=== PATIENT | male | born 2000 | race Hispanic/Latino ===

== ENCOUNTER 2019-04-10 22:30 | Emergency (ER) | payer OTHER ==
[~2019-04-10] VITALS: Ht 172.7 cm; Wt 84.1 kg
[2019-04-10] MEDS ORDERED: MELO15TA28 PO (22:36)
[2019-04-11 02:06] VITALS: BP 125/72
--- NOTE | 2019-04-11 08:03 | REP ---
Right hip two views: Mineralization and joint space are normal. There is no fracture or dislocation. There are no calcifications or foreign bodies. There are benign bone islands in the right ischium and in the femoral neck. Impression: Benign bone islands as described. No fracture or dislocation. Electronically Signed by Jesus Watkins MD 04/11/2019 07:54 A
== END 2019-04-11 05:50 | disposition left against medical advice (07) ==
LOC: M ED 22:30
DX: Z53.29 Procedure and treatment not carried out because of patient's decision for other reasons (principal)